=== PATIENT | male | born 1965 | race African-American/Black ===

== ENCOUNTER 2016-12-31 11:48 | Emergency (ER) | payer OTHER ==
[2016-12-31 12:04] VITALS: BP 133/100
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
== END 2016-12-31 14:22 | disposition home or self-care (01) ==
LOC: JD.ED 11:48
DX: G47.00 Insomnia, unspecified (principal); F41.8 Other specified anxiety disorders; R79.89 Other specified abnormal findings of blood chemistry
CPT/HCPCS: 36415; 80053; 80306; 84443; 85025; 99284; G0480; 99282

== ENCOUNTER 2017-01-17 16:20 | Emergency (ER) | payer OTHER ==
[2017-01-17] MEDS ORDERED: Metoclopramide 10 MG/2 ML SDV IVPUSH ONE (16:32)
[2017-01-17] MEDS ORDERED: LORazepam 2 MG/ML MDV IVPUSH ONE (16:34)
--- NOTE | 2017-01-17 16:39 | EDM.PDOC ---
ED HPI GENERAL MEDICAL PROBLEM - General Chief Complaint: Upper Extremity Injury/Pain Stated Complaint: [facility] Time Seen by Provider: 01/17/17 16:29 Source of Information: Reports: Patient, EMS Notes Reviewed History Limitations: Reports: Intoxication (Patient is markedly intoxicated by alcohol and likely drugs.) - History of Present Illness INITIAL COMMENTS - FREE TEXT/NARRATIVE: 51-year-old male apparently called the [facility] today indicating that he was having increased pain in his left shoulder and had fallen again. Patient is scheduled for an MRI apparently of his left shoulder due to suspect rotator cuff tear. He drinks alcohol on a daily basis and is prone to falling. Her medics were called by the [facility] to his home. He was not seen at the [facility] today. He is complaining that he ran out of his pain medication and shoulder on the left side hurts badly. He is obviously under the influence of alcohol and likely tramadol. His speech is dysarthric and slurred.. there is no obvious trauma to his head or body. He does not like to move his left shoulder in abduction or adduction. No chest injuries. Sinus rhythm on monitor. Stable vital signs with BP 123/102 at this time heart rate 113. Onset: Other ( chronic left shoulder pain. The question is whether he fell today and reinjured the area. Been having pain in his left shoulder for months. As above scheduled for MRI of the shoulder and into days' time) Duration: Hour(s): Location: Reports: Upper Extremity, Left (Left shoulder.) Quality: Reports: Ache, Sharp, Stabbing Severity: Moderate (With movement) Improves with: Reports: None Worsens with: Reports: Movement Context: Denies: Activity, Exercise, Lifting, Sick Contact, Trauma, Other Associated Symptoms: Reports: Weakness (Generalized.). Denies: Chest Pain, Cough, cough w sputum, Diaphoresis, Fever/Chills, Headaches, Loss of Appetite, Malaise, Nausea/Vomiting, Seizure, Shortness of Breath, Syncope Left Shoulder Pain Score (Numeric/FACES): 10 - Related Data Allergies Allergy/AdvReac Type Severity Reaction Status Date / Time No Known Allergies Allergy Verified 01/17/17 16:31 Home Meds: Home Meds traMADol [Ultram] 01/17/17 [History] Past Medical History - Past Health History Medical/Surgical History: Denies Medical/Surgical History Musculoskeletal History: Reports: Other (See Below) - Infectious Disease History Infectious Disease History: Reports: Chicken Pox - Past Surgical History Musculoskeletal Surgical History: Reports: Other (See Below) Social & Family History - Family History Family Medical History: Noncontributory - Tobacco Use Smoking Status *Q: Never Smoker Tobacco Use Within Last Twelve Months: Cigarettes Years of Tobacco use: 40 Packs/Tins Daily: 2.0 Used Tobacco, but Quit: No Second Hand Smoke Exposure: No - Caffeine Use Caffeine Use: Reports: Coffee - Recreational Drug Use Recreational Drug Use: Yes Drug Use in Last 12 Months: Yes Recreational Drug Type: Reports: Marijuana/Hashish Recreational Drug Use Frequency: Daily - Living Situation & Occupation Living situation: Reports: Single, with Significant Other Occupation: Employed Review of Systems - Review of Systems Review Of Systems: See Below Constitutional: Reports: Weakness. Denies: Chills, Diaphoresis, Fever, Other Eyes: Reports: No Symptoms. Denies: Decreased Acuity Ears: Reports: No Symptoms Nose: Reports: No Symptoms Mouth/Throat: Reports: No Symptoms Respiratory: Reports: Cough (Occasional cough), Sputum (Occasional sputum production usually brown in color from smoking.). Denies: Shortness of Breath, Wheezing, Pleuritic Chest Pain, Hemoptysis, Other Cardiovascular: Reports: No Symptoms GI/Abdominal: Reports: No Symptoms. Denies: Abdominal Pain, Bloody Stool, Constipation, Decreased Appetite, Diarrhea, Hematemesis, Nausea, Vomiting Musculoskeletal: Reports: Shoulder Pain. Denies: Neck Pain, Arm Pain, Back Pain , Hand Pain, Leg Pain, Foot Pain, Joint Pain, Joint Swelling (Chronic pain left shoulder with limited mobility. He's unable to sleep on the side.), Muscle Pain Skin: Reports: No Symptoms Neurological: Reports: Confusion, Dizziness (Today.) Psychiatric: Reports: Mood Lability ED EXAM, GENERAL - Physical Exam Exam: See Below Exam Limited By: Intoxication (He is dysarthric in speech and appears moderately intoxicated by drugs and alcohol.) General Appearance: Lethargic Eye Exam: Right Eye: Conjunctival Injection ( icterus ) Throat/Mouth: Other Head: Atraumatic (Oropharynx and tongue are mildly dry.), Normocephalic Neck: Normal Inspection, Supple, Non-Tender, Full Range of Motion. No: Lymphadenopathy (L), Lymphadenopathy (R) Respiratory/Chest: No Respiratory Distress, Lungs Clear, Normal Breath Sounds, No Accessory Muscle Use Cardiovascular: Normal Peripheral Pulses, No Edema, No Gallop, No Murmur, No Rub , Tachycardia Peripheral Pulses: 2+: Posterior Tibial (L), Posterior Tibial (R), Dorsalis Pedis (L), Dorsalis Pedis (R) GI/Abdominal: Normal Bowel Sounds, Soft, Non-Tender, No Organomegaly, No Abnormal Bruit, No Mass Extremities: Normal Inspection, Normal Capillary Refill, Other (He is reluctant to move his left arm in forward flexion or in abduction due to severe reported pain in his shoulder. It is unclear to be any deformities of the humerus or anatomical position of the humeral head. Acromioclavicular joint appears intact. ) Neurological: Inattentive, Disoriented (To time and place at times.) Psychiatric: Other (Intoxicated with marked mood swings.) Skin Exam: Warm, Intact, Normal Color, No Rash Course - Vital Signs Last Recorded V/S: Last Vital Signs Temp 36.7 C 01/17/17 16:22 Pulse 115 H 01/17/17 16:22 Resp 18 01/17/17 16:22 BP 123/103 H 01/17/17 16:22 Pulse Ox 96 01/17/17 16:22 - Orders/Labs/Meds Orders: Active Orders 24 hr Category Date Time Status Shoulder Comp Lt [CR] Stat Exams 01/17/17 16:41 Taken Dextrose 5%-0.9% NaCl [Dextrose 5%-Normal Saline] 1,000 Med 01/17/17 16:45 Active ml IV ASDIRECTED Medication Orders Dextrose/Sodium Chloride (Dextrose 5%-Normal Saline) 1,000 mls @ 999 mls/hr IV ASDIRECTED MARYLU Last Admin: 01/17/17 16:49 Dose: 999 mls/hr Labs: Laboratory Tests 01/17/17 01/17/17 01/17/17 Range/Units 16:33 16:33 16:33 WBC 5.07 (4.23-9.07) K/mm3 RBC 3.85 L (4.63-6.08) M/mm3 Hgb 13.2 L (13.7-17.5) gm/L Hct 37.5 L (40.1-51.0) % MCV 97.4 H (79.0-92.2) fl MCH 34.3 H (25.7-32.2) pg MCHC 35.2 (32.2-35.5) g/dl RDW Std Deviation 46.4 H (35.1-43.9) fL Plt Count 277 (163-337) K/mm3 MPV 10.0 (9.4-12.3) fl Neutrophils % (Manual) 42 (40-60) % Band Neutrophils % 1 (0-10) % Lymphocytes % (Manual) 44 H (20-40) % Atypical Lymphs % 0 % Monocytes % (Manual) 11 H (2-10) % Eosinophils % (Manual) 2 (0.8-7.0) % Basophils % (Manual) 0 L (0.2-1.2) Platelet Estimate Adequate Plt Morphology Comment Normal RBC Morph Comment Normal PT 10.1 (8.0-13.0) SECONDS INR 0.93 Sodium 141 (136-145) mEq/L Potassium 4.0 (3.5-5.1) mEq/L Chloride 103 (98-107) mEq/L Carbon Dioxide 23 (21-32) mEq/L Anion Gap 19.0 H (5-15) BUN 4 L (7-18) mg/dL Creatinine 0.6 L (0.7-1.3) mg/dL Est Cr Clr Drug Dosing TNP Estimated GFR (MDRD) > 60 (>60) mL/min BUN/Creatinine Ratio 6.7 L (14-18) Glucose 96 (74-106) mg/dL Calcium 8.5 (8.5-10.1) mg/dL Magnesium 2.0 (1.8-2.4) mg/dl Total Bilirubin 0.4 (0.2-1.0) mg/dL AST 144 H (15-37) U/L ALT 104 H (16-63) U/L Alkaline Phosphatase 119 H (46-116) U/L Creatine Kinase 70 (39-308) U/L Total Protein 8.4 H (6.4-8.2) g/dl Albumin 3.5 (3.4-5.0) g/dl Globulin 4.9 gm/dL Albumin/Globulin Ratio 0.7 L (1-2) Lipase 336 (73-393) U/L Ethyl Alcohol 0.27 (0.00) gm% Meds: Medications Generic Name Dose Route Start Last Admin Trade Name Ari PRN Reason Stop Dose Admin Dextrose/Sodium Chloride 1,000 mls @ 999 mls/hr 01/17/17 16:45 01/17/17 16:49 Dextrose 5%-Normal Saline IV 999 mls/hr ASDIRECTED MARYLU Administration Discontinued Medications Generic Name Dose Route Start Last Admin Trade Name Ari PRN Reason Stop Dose Admin Lactated Ringer's 1,000 mls @ 999 mls/hr 01/17/17 17:23 01/17/17 18:00 Ringers, Lactated IV 01/17/17 18:23 999 mls/hr .BOLUS ONE Administration Lorazepam 1 mg 01/17/17 16:34 01/17/17 16:45 Ativan IVPUSH 01/17/17 16:35 1 mg ONETIME ONE Administration Metoclopramide HCl 7.5 mg 01/17/17 16:32 01/17/17 16:47 Reglan IVPUSH 01/17/17 16:33 7.5 mg ONETIME ONE Administration - Radiology Interpretation Free Text/Narrative:: 51-year-old male of ancestry presents to the ED with reported falling and injuring his left shoulder which is chronically painful due to suspect rotator cuff tear. He is under the influence of alcohol and suspect pain medication tramadol. He is dysarthric and speech is slurred. We did not attempt to try and walk him on his own volition. Reportedly he fell and reinjured his left shoulder today. On examination her word signs of trauma. He is reluctant however to forward flex or abduct his left shoulder due to pain. No obvious deformities appreciated plan x-rays of the shoulder will be obtained. He will be given IV fluids D5 normal saline at open as he is a resting tachycardia of 1:15 per minute. Suspect he may be a little volume depleted. It's unclear how long he may been ingesting alcohol. Possible menopausal metabolic acidosis from alcohol use. Given Reglan 7.5 mg IV and Ativan 0.5 mg IV for nausea and sedation. Labs were drawn to include a ethanol level and a lipase. - Re-Assessments/Exams Free Text/Narrative Re-Assessment/Exam: 01/17/17 17:18 X-rays of the left shoulder do not reveal any obvious abnormalities. Certainly no dislocation or subluxation of the humerus. A.-C. joint is intact. 01/17/17 17:24 labs are back revealing a normal white count at 5.07. Hemoglobin is 13.2 hematocrit is 37.5 platelets normal at 277,000. Chemistry shows sodium 141 potassium 4.0 portable 3 bicarbonate 23. Anion gap is elevated at 19.0 creatinine is normal at 0.6 glucose 96. Bilirubin 0.4 AST is elevated at 144 ALT is elevated at 104 alkaline phosphatase elevated at 119 lipase normal at 336. Her blood alcohol was 0.27 g percent. Therefore he has metabolic acidosis is most likely secondary alcohol abuse ketosis. Would require 2 L of IV fluid. After the first liter of D5 normal saline has been infused the second liter will be Ringer's lactate and open. Present he is able to rest and is sleeping. 01/17/17 19:21 has nearly completed his second liter of IV fluids and will be discharged to home. Departure - Departure Time of Disposition: 19:22 Disposition: Home, Self-Care 01 Condition: fair Clinical Impression: Chronic left shoulder pain Acute alcohol intoxication Qualifiers: Complication of substance-induced condition: uncomplicated Qualified Code(s): F10.920 - Alcohol use, unspecified with intoxication, uncomplicated Unspecified rotator cuff tear or rupture of left shoulder, not specified as traumatic Qualifiers: Rotator cuff tear extent: unspecified tear extent Qualified Code(s): M75.102 - Unspecified rotator cuff tear or rupture of left shoulder, not specified as traumatic - Discharge Information Referrals: Mi Fowler DO [Primary Care Provider] - Forms: ED Department Discharge Additional Instructions: Evaluation emergent today in regards to history of recurrent fall injuring chronically painful left shoulder. A history of chronic pain left shoulder secondary to rotator cuff tendinitis and likely tear of rotator cuff tendons. There are no obvious signs of trauma to left shoulder on examination today. X- rays done revealed the shoulder to be in its normal anatomical position. No fractures are identified. You're scheduled for MRI of the shoulder on Tuesday this week and I would advise you how this test carried out. The thought to be suffering a metabolic acidosis secondary to alcohol ingestion. This major bodies been using alcohol only for food and energy. This results in your body Breaky Dr. Urbina for further energy use making you have a sick feeling. He was therefore treated with 2 L of IV fluids to restore her fluid deficit and posterior sugar back in your bloodstream. Blood alcohol today was 0.29 g percent which means you are not able to operate a motor vehicle for at least 12 hours. Followup with the [facility] in regards to pain medication needs. - My Orders Last 24 Hours: My Active Orders 01/17/17 16:41 Shoulder Comp Lt [CR] Stat 01/17/17 16:45 Dextrose 5%-0.9% NaCl [Dextrose 5%-Normal Saline] 1,000 ml IV ASDIRECTED - Assessment/Plan Last 24 Hours: My Active Orders 01/17/17 16:41 Shoulder Comp Lt [CR] Stat 01/17/17 16:45 Dextrose 5%-0.9% NaCl [Dextrose 5%-Normal Saline] 1,000 ml IV ASDIRECTED
[2017-01-17] MEDS ORDERED: Dextrose 5%-0.9% NaCl 1,000 ML IV SCH (16:45)
[2017-01-17 16:46] VITALS: BP 123/103
[2017-01-17] MEDS: Lactated Ringers 1,000 ML IV ONE ×2 (17:00→18:00)
--- NOTE | 2017-01-18 10:47 | CR ---
Left shoulder: Three views of the left shoulder were obtained. Comparison: No previous study. Acromioclavicular and glenohumeral joints are within normal limits. No fracture, dislocation or other bony abnormality is seen. Impression: 1. No abnormality is identified on left shoulder study. Diagnostic code #1
== END 2017-01-17 19:35 | disposition home or self-care (01) ==
LOC: JD.ED 16:20 → SUPCPDRO 16:20 → JD.ED 19:35
DX: F10.920 Alcohol use, unspecified with intoxication, uncomplicated (principal); M75.102 Unspecified rotator cuff tear or rupture of left shoulder, not specified as traumatic; Y90.1 Blood alcohol level of 20-39 mg/100 ml
CPT/HCPCS: 36415; 73030; 80053; 82550; 83690; 83735; 85025; 85610; 96361; 96374; 96375; 99285; G0480; J2060; J2765; J7042; J7120; 99284